=== PATIENT | female | born 1930 | race Caucasian/White ===

== ENCOUNTER 2016-10-04 20:22 | Emergency (ER) | payer MEDICARE | END 2016-10-04 21:05 | disposition home or self-care (01) | LOC: BURERS 20:22 | DX: I10 Essential (primary) hypertension (principal); I50.9 Heart failure, unspecified; E78.5 Hyperlipidemia, unspecified; E78.00 Pure hypercholesterolemia, unspecified; I11.0 Hypertensive heart disease with heart failure; F32.9 Major depressive disorder, single episode, unspecified; Z79.899 Other long term (current) drug therapy | CPT/HCPCS: 99283 ==

== ENCOUNTER 2016-11-25 09:43 | Outpatient (CLI) | payer MEDICARE | END 2016-11-25 09:44 | disposition home or self-care (01) | LOC: HPCALD 09:43 | PROVIDERS: ATTEND Family Medicine | DX: E89.0 Postprocedural hypothyroidism (principal) | CPT/HCPCS: 36415; 84443 ==

== ENCOUNTER 2017-04-23 08:50 | Outpatient (CLI) | payer MEDICARE, BC ==
[2017-04-23 10:10] LABS: ALT (SGPT) 18 U/L (8-55); AST (SGOT) 40 U/L (5-34); Albumin 3.9 g/dL (3.4-4.8); Alkaline Phosphatase 63 U/L (40-150); Anion Gap 16 mmol/L (10-20); BUN (Urea Nitrogen) 24 mg/dL (9.8-20.1); Bilirubin, Total 1.3 mg/dL (0.2-1.2); Calc. Creatinine Clearance 0 mL/min (70-130); Calcium 8.8 mg/dL (7.8-10.44); Carbon Dioxide 32 mmol/L (23-31); Cardiac Risk 2.2 (Less than 4.5); Chloride 100 mmol/L (98-107); Cholesterol 167 mg/dl (< 200 Desired); Estimated GFR-MDRD 46; Glucose 88 mg/dL (83-110); HDL Cholesterol 77 mg/dL (>60 Neg Risk); LDL Cholesterol, Calculated 80 mg/dL; Potassium 3.6 mmol/L (3.5-5.1); Protein, Total 6.9 g/dL (6.0-8.3); Sodium 144 mmol/L (136-145); Triglycerides 49 mg/dL (Less than 150)
== END 2017-04-23 08:51 | disposition home or self-care (01) ==
LOC: BURLAB 08:50
PROVIDERS: ATTEND Internal Medicine Cardiovascular Disease
DX: E03.9 Hypothyroidism, unspecified (principal); E78.00 Pure hypercholesterolemia, unspecified
CPT/HCPCS: 36415; 80053; 80061; 84443

== ENCOUNTER 2017-10-08 12:16 | Outpatient (CLI) | payer MEDICARE, BC ==
--- NOTE | 2017-10-08 20:18 | RAD ---
LEFT SHOULDER THREE VIEWS 10/08/17 There is a nondisplaced fracture of the distal clavicle just prior to the AC joint. The AC joint widt h is perhaps a little increased but there is no off set. The proximal humerus appears intact and the glenohumeral joint was unremarkable. There as no dislocation here. IMPRESSION: Undisplaced fracture of the distal end of the clavicle. POS: HOME
== END 2017-10-08 12:17 | disposition home or self-care (01) ==
LOC: BURRAD 12:16
PROVIDERS: ATTEND Family Medicine
DX: M25.512 Pain in left shoulder (principal); S42.035A Nondisplaced fracture of lateral end of left clavicle, initial encounter for closed fracture

== ENCOUNTER 2018-06-27 09:17 | Emergency (ER) | payer MEDICARE ==
[2018-06-27 10:11] LABS: ALT (SGPT) 37 U/L (8-55); AST (SGOT) 64 U/L (5-34); Albumin 3.6 g/dL (3.4-4.8); Alkaline Phosphatase 69 U/L (40-150); Anion Gap 11 mmol/L (10-20); BUN (Urea Nitrogen) 24 mg/dL (9.8-20.1); Bilirubin, Total 1.1 mg/dL (0.2-1.2); Calc. Creatinine Clearance 0 mL/min (70-130); Calcium 8.9 mg/dL (7.8-10.44); Carbon Dioxide 29 mmol/L (23-31); Chloride 105 mmol/L (98-107); Estimated GFR-MDRD 57; Globulin 2.8 g/dL (2.4-3.5); Glucose 92 mg/dL (83-110); Potassium 3.9 mmol/L (3.5-5.1); Protein, Total 6.4 g/dL (6.0-8.3); Sodium 141 mmol/L (136-145)
[2018-06-27 10:14] LABS: CKMB 1.1 ng/mL (0-6.6); Troponin I Less than 0.010 ng/mL (< 0.028)
[2018-06-27 10:24] LABS: #Eosinphils 0.3 thou/uL (0.0-0.7); #Lymphocytes 1.2 thou/uL (1.20-3.40); #Monocytes 0.5 thou/uL (0.11-0.59); #Neutrophils 2.3 thou/uL (1.40-6.50); %Eosinophils 7.8 % (0.0-10.0); %Lymphocytes 27.4 % (21.0-51.0); %Monocytes 10.9 % (0.0-10.0); Hemoglobin 11.7 g/dL (12.0-16.0); Mean Corpuscular Volume 99.9 fL (78.0-98.0); Mean Platelet Volume 10.3 fL (7.4-10.4); Platelet Count 92 thou/uL (130-400); RBC Distribution Width 13.3 % (11.5-14.5); Red Blood Cell (RBC) Count 3.43 mill/uL (4.20-5.40); White Blood Cell (WBC) Count 4.3 thou/uL (4.8-10.8)
[2018-06-27 10:26] LABS: MDiff Complete? YES
--- NOTE | 2018-06-27 11:06 | CT ---
CT OF JEANA PERFORMED WITHOUT CONTRAST ENHANCEMENT: HISTORY: Dizziness with fall hitting head. COMPARISON: A 08/19/2016 study. FINDINGS: There is marked generalized ventricular and sulcal prominence with decreased attenuation of the periv entricular white matter consistent with some chronic white matter change. No signs of intracerebral hemorrhage or extraaxial fluid collections. Mastoid air cells and visualized sinuses appear clear. IMPRESSION: No acute intracranial abnormalities. POS: [facility]
--- NOTE | 2018-06-27 11:27 | RAD ---
RIGHT WRIST 3 VIEWS: HISTORY: Fall, injury, right wrist pain. FINDINGS/IMPRESSION: No acute fracture or dislocation is seen. If symptoms do not improve, a followup exam should be obtained in 7-10 days. POS: [facility]
[2018-06-27] MEDS ORDERED: Furosemide 40 MG TAB ONE (11:28)
[2018-06-27] MEDS ORDERED: Lisinopril 20 MG TAB ONE (11:28)
--- NOTE | 2018-06-27 11:49 | RAD ---
LEFT HAND 3 VIEWS: HISTORY: Hand injury. FINDINGS: Vascular calcifications are noted. There are marked arthritic changes of the hand. Changes are part icularly pronounced at the PIP and DIP joints of the index finger and interphalangeal joint of the th umb. There is also severe arthritic change of the 1st carpometacarpal joint space. There is calcifi cation of the triangular fiber cartilage. There are arthritic changes of the triscaphe joint. I do not see any signs of a fracture. IMPRESSION: Severe arthritic changes and fairly extensive vascular calcifications. No acute injury. POS: [facility]
--- NOTE | 2018-06-27 11:49 | RAD ---
LEFT HUMERUS 2 VIEWS: HISTORY: Humerus pain status post fall. FINDINGS: Some arthritic changes of the AC joint. I do not see any signs of fracture or dislocation. No elbow joint effusion. IMPRESSION: No evidence of fracture. POS: [facility]
== END 2018-06-27 12:44 | disposition short-term general hospital (02) ==
LOC: BURERS 09:17
DX: R55 Syncope and collapse (principal); Z86.73 Personal history of transient ischemic attack (TIA), and cerebral infarction without residual deficits; I11.0 Hypertensive heart disease with heart failure; I50.9 Heart failure, unspecified; E03.9 Hypothyroidism, unspecified; E78.5 Hyperlipidemia, unspecified; I48.91 Unspecified atrial fibrillation; F32.9 Major depressive disorder, single episode, unspecified; G30.9 Alzheimer's disease, unspecified; F02.80 Dementia in other diseases classified elsewhere, unspecified severity, without behavioral disturbance, psychotic disturbance, mood disturbance, and anxiety
CPT/HCPCS: 70450; 80053; 82553; 83880; 84484; 85025; 93005

== ENCOUNTER 2018-11-08 09:21 | Emergency (ER) | payer MEDICARE, BC ==
--- NOTE | 2018-11-08 10:43 | CT ---
CT HEAD WITHOUT CONTRAST: INDICATIONS: Fall with injury to head. No loss of consciousness. COMPARISON: Recent head CT from 08/27/2018. TECHNIQUE: Multiple axial tomograms obtained through the head without IV enhancement. FINDINGS: Moderately severe chronic ischemic white matter change again noted. There is mild to moderate cortic al volume loss, which appears unchanged in appearance. No evidence of intracranial mass or hemorrhag e. No evidence of acute infarct. The paranasal sinuses and mastoids are clear. IMPRESSION: No evidence of acute process. POS: [facility]
--- NOTE | 2018-11-08 10:52 | CT ---
CT LUMBAR SPINE: Date: 11/08/18 Multiple axial tomograms obtained through lumbar spine with multiplanar reconstruction. INDICATION: Fall with injury and pain to lower back. FINDINGS: Lumbar vertebra maintain height. There are degenerative changes. Degenerative disc changes at all lev els, most prominent at L3-4, L4-5, and L5-S1. There is a Grade I spondylolisthesis at L4-5. No eviden ce of posterior spondylolysis. There is no evidence of fracture or acute compression deformity. At L1-2, no significant disc bulge or protrusion. No central canal or foraminal stenosis. At L2-3, diffuse disc bulge. Facet and ligamentous hypertrophy is prominent. Moderate central canal s tenosis. At L3-4, broad based disc bulge. Severe posterior facet and ligamentous hypertrophy. Severe central c anal stenosis at this level. Bilateral foraminal stenosis. At L4-5, anterolisthesis is noted above. Broad based disc bulge. Severe facet and ligamentous hypertr ophy. Severe central canal stenosis. Bilateral foraminal stenosis. At L5-S1, there is mild disc bulge and hypertrophic change. Facet hypertrophy. Mild central canal kevin nosis. Mild bilateral foraminal stenosis. IMPRESSION: 1. No evidence of vertebral body compression or acute fracture. 2. There are degenerative disc changes at all levels with Grade I spondylolisthesis at L4-5. Severe central canal stenosis is noted at L3-4 and L4-5 as described above. POS: [facility]
== END 2018-11-08 11:08 | disposition home or self-care (01) ==
LOC: BURERS 09:21
DX: S51.012A Laceration without foreign body of left elbow, initial encounter (principal); S09.90XA Unspecified injury of head, initial encounter; M43.16 Spondylolisthesis, lumbar region; M51.36 Other intervertebral disc degeneration, lumbar region; E30.9 Disorder of puberty, unspecified; E03.9 Hypothyroidism, unspecified; I48.91 Unspecified atrial fibrillation; J44.9 Chronic obstructive pulmonary disease, unspecified; E78.5 Hyperlipidemia, unspecified; I13.0 Hypertensive heart and chronic kidney disease with heart failure and stage 1 through stage 4 chronic kidney disease, or unspecified chronic kidney disease; N18.3 Chronic kidney disease, stage 3 (moderate); I50.9 Heart failure, unspecified; F32.9 Major depressive disorder, single episode, unspecified; Z79.899 Other long term (current) drug therapy; Z79.82 Long term (current) use of aspirin; W18.30XA Fall on same level, unspecified, initial encounter
CPT/HCPCS: 70450; 72131

== ENCOUNTER 2018-11-15 17:21 | Emergency (ER) | payer MEDICARE, BC ==
[2018-11-15 17:53] LABS: INR-International Normal Ratio 1.1; PTT 32.3 SEC (22.9-36.1); Prothrombin Time 13.8 SEC (12.0-14.7)
[2018-11-15 18:00] LABS: Bilirubin Negative (Negative); Blood, Urine Negative (Negative); Clarity SLIGHTLY (Clear); Glucose, Urine (Dipstick) Negative (Negative); Leukocyte Negative (Negative); Nitrite Negative (Negative); Protein, Urine (Dipstick) Trace mg/dL (Neg-Trace); Specific Gravity, Urine 1.015 (1.005-1.030); Urobilinogen 0.2 mg/dL (0.2-1.0)
[2018-11-15 18:01] LABS: ALT (SGPT) 81 U/L (8-55); AST (SGOT) 134 U/L (5-34); Albumin 3.8 g/dL (3.4-4.8); Alkaline Phosphatase 90 U/L (40-150); Anion Gap 17 mmol/L (10-20); BUN (Urea Nitrogen) 30 mg/dL (9.8-20.1); Bilirubin, Total 2.4 mg/dL (0.2-1.2); Calc. Creatinine Clearance 0 mL/min (70-130); Calcium 9.7 mg/dL (7.8-10.44); Carbon Dioxide 30 mmol/L (23-31); Chloride 99 mmol/L (98-107); Estimated GFR-MDRD 42; Globulin 4.2 g/dL (2.4-3.5); Glucose 100 mg/dL (83-110); Lipase 41 U/L (8-78); Potassium 4.1 mmol/L (3.5-5.1); Sodium 142 mmol/L (136-145)
[2018-11-15 18:08] LABS: #Basophils 0.1 thou/uL (0.0-0.2); #Eosinphils 0.4 thou/uL (0.0-0.7); #Lymphocytes 1.2 thou/uL (1.20-3.40); #Monocytes 0.6 thou/uL (0.11-0.59); #Neutrophils 5.9 thou/uL (1.40-6.50); %Basophils 0.9 % (0.0-1.0); %Eosinophils 4.8 % (0.0-10.0); %Lymphocytes 14.9 % (21.0-51.0); %Monocytes 7.6 % (0.0-10.0); %Neutrophils 71.8 % (42.0-75.0); Hemoglobin 14.2 g/dL (12.0-16.0); MDiff Complete? YES; Macrocytosis SLIGHT = 6-15 cells (100X) (0-5/hpf); Mean Corpuscular HGB CONC 33.2 g/dL (32.0-36.0); Mean Corpuscular Hemoglobin 34.3 pg (27.0-31.0); Mean Platelet Volume 9.7 fL (7.4-10.4); Platelet Count 143 thou/uL (130-400); RBC Distribution Width 13.3 % (11.5-14.5); Red Blood Cell (RBC) Count 4.13 mill/uL (4.20-5.40); White Blood Cell (WBC) Count 8.2 thou/uL (4.8-10.8)
[2018-11-15 18:21] LABS: CKMB 6.2 ng/mL (0-6.6)
--- NOTE | 2018-11-15 21:02 | RAD ---
PORTABLE CHEST: Date: 11-15-18 An AP portable film at 1800 is compared with a 09-09-[address] [facility]. FINDINGS: Mild cardiomegaly is about the same as before. There is no vascular congestion, edema, or pleural eff usion. The lungs are clear. The trachea is midline. A cardiac pacer is in place as before. No gross f ractures were identified. IMPRESSION: Mild cardiomegaly but no acute findings. POS: HOME
--- NOTE | 2018-11-15 21:06 | RAD ---
PELVIS ONE VIEW: Date: 11-15-18 FINDINGS: The bony pelvis appears intact with no obvious fracture seen. The symphysis shows no widening or offs et and the pubic rings appear intact. The hips appear intact. There is some mild joint space narrowin g bilaterally as well as mild arthritic change. The SI joints are not well assessed due to overlying gas and fecal material. Subtle injuries could be missed in the pelvis due to the overlying gas. CT wo uld be more sensitive if further detail was needed. Arterial calcifications are seen in the femoral v essels. IMPRESSION: No acute traumatic finding. POS: HOME
== END 2018-11-15 21:00 | disposition home or self-care (01) ==
LOC: BURERS 17:21
DX: R53.81 Other malaise (principal); I48.91 Unspecified atrial fibrillation; I13.0 Hypertensive heart and chronic kidney disease with heart failure and stage 1 through stage 4 chronic kidney disease, or unspecified chronic kidney disease; I50.9 Heart failure, unspecified; N18.3 Chronic kidney disease, stage 3 (moderate); I25.10 Atherosclerotic heart disease of native coronary artery without angina pectoris; F03.90 Unspecified dementia, unspecified severity, without behavioral disturbance, psychotic disturbance, mood disturbance, and anxiety; J44.9 Chronic obstructive pulmonary disease, unspecified; M19.90 Unspecified osteoarthritis, unspecified site; E78.5 Hyperlipidemia, unspecified; K59.00 Constipation, unspecified; Z86.73 Personal history of transient ischemic attack (TIA), and cerebral infarction without residual deficits; Z79.899 Other long term (current) drug therapy; Z79.51 Long term (current) use of inhaled steroids
CPT/HCPCS: 51701; 71045; 72170; 80053; 81003; 82553; 83605; 83690; 83880; 84484; 85025; 85610; 85730; 87804; 93005; 96360

== ENCOUNTER 2019-07-26 16:55 | Outpatient (CLI) | payer MEDICARE, BC ==
--- NOTE | 2019-07-26 19:50 | RAD ---
CHEST TWO VIEWS: 07/26/19 Comparison is made with the 06/19/19 study. COPD is present with flattening of the diaphragm. The heart is enlarged but no more so than before. T here are no congestive changes today. No pleural effusions are seen. There are no signs of pneumonia. The unipolar cardiac pacer remains in place. IMPRESSION: Cardiomegaly and COPD but no acute findings. POS: HOME
== END 2019-07-26 16:56 | disposition home or self-care (01) ==
LOC: BURRAD 16:55
PROVIDERS: ATTEND Nurse Practitioner Family
DX: J44.9 Chronic obstructive pulmonary disease, unspecified (principal); R05 Cough; I51.7 Cardiomegaly
CPT/HCPCS: 71046

== ENCOUNTER 2019-08-06 08:33 | Emergency (ER) | payer MEDICARE, BC ==
[2019-08-06 09:21] LABS: #Basophils 0.1 thou/uL (0.0-0.2); #Eosinphils 0.1 thou/uL (0.0-0.7); #Neutrophils 9.5 thou/uL (1.40-6.50); %Basophils 0.6 % (0.0-1.0); %Eosinophils 0.5 % (0.0-10.0); %Lymphocytes 8.4 % (21.0-51.0); %Monocytes 8.3 % (0.0-10.0); %Neutrophils 82.1 % (42.0-75.0); Hemoglobin 14.4 g/dL (12.0-16.0); Mean Corpuscular HGB CONC 32.2 g/dL (32.0-36.0); Mean Corpuscular Hemoglobin 33.4 pg (27.0-31.0); Platelet Count 123 thou/uL (130-400); RBC Distribution Width 12.7 % (11.5-14.5); Red Blood Cell (RBC) Count 4.32 mill/uL (4.20-5.40); White Blood Cell (WBC) Count 11.5 thou/uL (4.8-10.8)
[2019-08-06 09:32] LABS: ALT (SGPT) 16 U/L (8-55); AST (SGOT) 26 U/L (5-34); Albumin 3.5 g/dL (3.4-4.8); Alkaline Phosphatase 66 U/L (40-110); Anion Gap 15 mmol/L (10-20); BUN (Urea Nitrogen) 15 mg/dL (9.8-20.1); Bilirubin, Total 1.9 mg/dL (0.2-1.2); Calc. Creatinine Clearance 0 mL/min (70-130); Carbon Dioxide 31 mmol/L (23-31); Chloride 97 mmol/L (98-107); Estimated GFR-MDRD 54; Globulin 3.3 g/dL (2.4-3.5); Glucose 101 mg/dL (83-110); Protein, Total 6.8 g/dL (6.0-8.3); Sodium 139 mmol/L (136-145)
[2019-08-06] MEDS ORDERED: Ibuprofen 200 MG TAB ONE (09:38)
--- NOTE | 2019-08-06 10:15 | RAD ---
CHEST 2 VIEWS: DATE: 08/06/2019. COMPARISON: Comparison is made with a 07/26/2019 study. In the interval, there has been the appearance of an infiltrate in the right costophrenic angle and p robably a tiny amount of pleural fluid as well. Pneumonia seems probable. The lungs are otherwise c lear. There is no vascular congestion or edema. Mild cardiomegaly is unchanged. IMPRESSION: Interval appearance of an infiltrate in the right costophrenic angle, presumably a developing pneumon ia. CODE T POS: HOME
== END 2019-08-06 10:45 | disposition home or self-care (01) ==
LOC: BURERS 08:33
DX: J69.0 Pneumonitis due to inhalation of food and vomit (principal); E03.9 Hypothyroidism, unspecified; I25.10 Atherosclerotic heart disease of native coronary artery without angina pectoris; F03.90 Unspecified dementia, unspecified severity, without behavioral disturbance, psychotic disturbance, mood disturbance, and anxiety; I48.91 Unspecified atrial fibrillation; M19.90 Unspecified osteoarthritis, unspecified site; J44.9 Chronic obstructive pulmonary disease, unspecified; E78.5 Hyperlipidemia, unspecified; I13.0 Hypertensive heart and chronic kidney disease with heart failure and stage 1 through stage 4 chronic kidney disease, or unspecified chronic kidney disease; N18.3 Chronic kidney disease, stage 3 (moderate); I50.9 Heart failure, unspecified
CPT/HCPCS: 71046; 80053; 83605; 83880; 84484; 85025; 87040; 93005

== ENCOUNTER 2019-10-09 20:28 | Emergency (ER) | payer MEDICARE, BC ==
[2019-10-09 20:59] LABS: #Basophils 0.1 thou/uL (0.0-0.2); #Eosinphils 0.5 thou/uL (0.0-0.7); #Lymphocytes 1.5 thou/uL (1.20-3.40); #Monocytes 1.1 thou/uL (0.11-0.59); %Basophils 0.7 % (0.0-1.0); %Eosinophils 5.5 % (0.0-10.0); %Lymphocytes 15.9 % (21.0-51.0); %Monocytes 11.9 % (0.0-10.0); %Neutrophils 65.9 % (42.0-75.0); Hemoglobin 13.2 g/dL (12.0-16.0); Mean Corpuscular HGB CONC 33.2 g/dL (32.0-36.0); Mean Corpuscular Hemoglobin 32.6 pg (27.0-31.0); Mean Corpuscular Volume 98.3 fL (78.0-98.0); Mean Platelet Volume 8.9 fL (7.4-10.4); Platelet Count 129 thou/uL (130-400); RBC Distribution Width 12.1 % (11.5-14.5); Red Blood Cell (RBC) Count 4.05 mill/uL (4.20-5.40); White Blood Cell (WBC) Count 9.1 thou/uL (4.8-10.8)
[2019-10-09 21:12] LABS: ALT (SGPT) 69 U/L (8-55); AST (SGOT) 147 U/L (5-34); Albumin 3.4 g/dL (3.4-4.8); Alkaline Phosphatase 94 U/L (40-110); Anion Gap 20 mmol/L (10-20); BUN (Urea Nitrogen) 63 mg/dL (9.8-20.1); Bilirubin, Total 0.7 mg/dL (0.2-1.2); CK (CPK) 97 U/L (29-168); Calc. Creatinine Clearance 0 mL/min (70-130); Calcium 8.9 mg/dL (7.8-10.44); Carbon Dioxide 22 mmol/L (23-31); Chloride 99 mmol/L (98-107); Estimated GFR-MDRD 8; Globulin 4.6 g/dL (2.4-3.5); Glucose 113 mg/dL (83-110); Magnesium 2.2 mg/dL (1.6-2.6); Potassium 3.4 mmol/L (3.5-5.1); Sodium 138 mmol/L (136-145)
[2019-10-09 21:20] LABS: Bilirubin Negative (Negative); Blood, Urine Large (Negative); Clarity Cloudy (Clear); Glucose, Urine (Dipstick) Negative (Negative); Leukocyte Large (Negative); Nitrite Negative (Negative); Protein, Urine (Dipstick) 100 mg/dL (Neg-Trace); Urobilinogen 0.2 mg/dL (Less than 2)
[2019-10-09 21:28] LABS: Squamous Epithelial 0-3 HPF (0-3); Transitional Epithelial 0-3 HPF (None Seen); WBC/HPF 21-50 HPF (0-3)
[2019-10-09] MEDS ORDERED: cefTRIAXone\\ROCEPHIN 2 GM VIAL ONE (21:28)
[2019-10-09] MEDS ORDERED: Sodium Chloride 0.9% 100 ML ONE (21:28)
[2019-10-09 21:29] LABS: CKMB 1.3 ng/mL (0-6.6)
[2019-10-09 21:30] LABS: Bacteria/HPF 3+ HPF (None Seen); Renal Epithelial 0-3 HPF (None Seen)
--- NOTE | 2019-10-09 22:44 | CT ---
CT OF THE ABDOMEN AND PELVIS WITHOUT CONTRAST: Date: 10-09-2019 FINDINGS: A noncontrast CT was done. There is a small right pleural effusion. No major infiltrate was seen in t he lung bases. The heart is large. There appears to be an area of scarring near the right costophrenic angle. The liver, spleen, pancreas, kidneys, and abdominal aorta showed no acute findings of a noncontrast s tudy. The left adrenal gland is a little thicker than right, but as there is some motion artifact pre sent this is difficult to evaluate well. The aorta shows calcification but no dilation. There is considerable fecal material in the bowel all the way to the rectum. The lower rectal wall ma y be slightly thickened, but there is no inflammatory change around it. The small bowel is noted dila bob. No free or free fluid was seen. CT of the pelvis shows no pelvic masses, fluid collections, or inflammatory changes. Diffuse degenera tive changes are present throughout the lumbar spine with multilevel degenerative disc disease. Some areas of sclerosis in the sacrum are suggestive of prior insufficiency fractures which have been seen and commented on in prior CT scans. IMPRESSION: 1. Aside from mild constipation, no dramatic abdominal or pelvic findings. 2. Small right pleural effusion. 3. Other findings as noted above. POS: HOME
== END 2019-10-10 | disposition short-term general hospital (02) ==
LOC: BURERS 20:28
DX: N17.9 Acute kidney failure, unspecified (principal); N30.00 Acute cystitis without hematuria; R62.7 Adult failure to thrive; E03.9 Hypothyroidism, unspecified; I25.10 Atherosclerotic heart disease of native coronary artery without angina pectoris; I13.0 Hypertensive heart and chronic kidney disease with heart failure and stage 1 through stage 4 chronic kidney disease, or unspecified chronic kidney disease; N18.3 Chronic kidney disease, stage 3 (moderate); I50.9 Heart failure, unspecified; F03.90 Unspecified dementia, unspecified severity, without behavioral disturbance, psychotic disturbance, mood disturbance, and anxiety; I48.91 Unspecified atrial fibrillation; M19.90 Unspecified osteoarthritis, unspecified site; J44.9 Chronic obstructive pulmonary disease, unspecified; E78.5 Hyperlipidemia, unspecified; Z79.82 Long term (current) use of aspirin; Z79.899 Other long term (current) drug therapy
CPT/HCPCS: 74176; 80053; 81003; 81015; 82550; 82553; 83735; 84484; 85025; 87077; 87086; 87186; 93005; 96361; 96365; J0696; J3490

== ENCOUNTER 2019-10-19 20:30 | Inpatient (IN) | payer MEDICARE, BC ==
[2019-10-20] MEDS ORDERED: Bisacodyl 10 MG SUPP PR PRN (06:07)
[2019-10-20] MEDS ORDERED: Guaifenesin DM 100-10/5 ML UDCUP PO PRN (06:07)
[2019-10-20] MEDS ORDERED: Docusate 100 MG CAP PO PRN (06:07)
[2019-10-20] MEDS ORDERED: Calcium Carbonate 500 MG ChewTAB PO PRN (06:07)
[2019-10-20] MEDS ORDERED: cloNIDine 0.1 MG TAB PO PRN (06:07)
[2019-10-20] MEDS ORDERED: Senokot S 8.6-50 MG TAB PO PRN (06:07)
[2019-10-20] MEDS: Enoxaparin Sodium 30 MG/0.3 ML SYRINGE SC SCH (08:54)
[2019-10-20] MEDS: Ubidecarenone 50 MG CAP PO SCH (08:54)
[2019-10-20] MEDS: Aspirin 325 MG TAB PO SCH (08:55)
[2019-10-20] MEDS: Fish Oil 1,000 MG CAP PO SCH (08:55)
[2019-10-20] MEDS: Multivitamin W/ Minerals 1 TAB PO SCH (08:56)
[2019-10-20] MEDS: Megestrol Acetate 40 MG TAB PO SCH ×3 (08:57→20:34)
[2019-10-20] MEDS: Amlodipine 5 MG TAB PO SCH (08:57)
[2019-10-20] MEDS: hydrALAZINE 25 MG TAB PO SCH ×3 (08:57→20:35)
[2019-10-20] MEDS ORDERED: Prevnar 13-Val Conj/PF 0.5 ML SYRINGE IM ONE (09:00)
[2019-10-20] MEDS ORDERED: FLU VACC QS2019-20(6MOS UP)/PF 60 MCG/0.5 ML SYRINGE IM ONE (09:00)
[2019-10-20] MEDS ORDERED: Nystatin Powder 15 GM BOT TOP PRN (17:14)
[2019-10-20] MEDS: Ezetimibe 10 MG TAB PO SCH (20:34)
[2019-10-20] MEDS: Acetaminophen 325 MG TAB PO PRN (20:34)
[2019-10-20] MEDS: Donepezil HCl 10 MG TAB PO SCH (20:34)
[2019-10-21] MEDS: Levothyroxine Sodium 88 MCG TAB PO SCH (05:13)
[2019-10-21 05:40] LABS: #Basophils 0.1 thou/uL (0.0-0.2); #Eosinphils 0.5 thou/uL (0.0-0.7); #Monocytes 0.7 thou/uL (0.11-0.59); #Neutrophils 3.6 thou/uL (1.40-6.50); %Basophils 0.8 % (0.0-1.0); %Eosinophils 7.4 % (0.0-10.0); %Lymphocytes 29.2 % (21.0-51.0); %Neutrophils 52.6 % (42.0-75.0); Hemoglobin 11.3 g/dL (12.0-16.0); Mean Corpuscular HGB CONC 33.3 g/dL (32.0-36.0); Mean Corpuscular Hemoglobin 32.7 pg (27.0-31.0); Mean Corpuscular Volume 98.4 fL (78.0-98.0); Mean Platelet Volume 8.2 fL (7.4-10.4); Platelet Count 180 thou/uL (130-400); RBC Distribution Width 13.8 % (11.5-14.5); Red Blood Cell (RBC) Count 3.46 mill/uL (4.20-5.40); White Blood Cell (WBC) Count 6.9 thou/uL (4.8-10.8)
[2019-10-21 05:50] LABS: ALT (SGPT) 24 U/L (8-55); AST (SGOT) 37 U/L (5-34); Albumin 2.9 g/dL (3.4-4.8); Alkaline Phosphatase 68 U/L (40-110); Anion Gap 14 mmol/L (10-20); BUN (Urea Nitrogen) 37 mg/dL (9.8-20.1); Bilirubin, Total 0.4 mg/dL (0.2-1.2); Calc. Creatinine Clearance 16 mL/min (70-130); Carbon Dioxide 20 mmol/L (23-31); Chloride 110 mmol/L (98-107); Estimated GFR-MDRD 19; Globulin 3.5 g/dL (2.4-3.5); Glucose 86 mg/dL (83-110); Potassium 3.6 mmol/L (3.5-5.1); Protein, Total 6.4 g/dL (6.0-8.3); Sodium 140 mmol/L (136-145)
[2019-10-21] MEDS: Enoxaparin Sodium 30 MG/0.3 ML SYRINGE SC SCH (08:47)
[2019-10-21] MEDS: Amlodipine 5 MG TAB PO SCH (08:47)
[2019-10-21] MEDS: Fish Oil 1,000 MG CAP PO SCH (08:49)
[2019-10-21] MEDS: Megestrol Acetate 40 MG TAB PO SCH ×3 (08:49→21:08)
[2019-10-21] MEDS: Multivitamin W/ Minerals 1 TAB PO SCH (08:49)
[2019-10-21] MEDS: Ubidecarenone 50 MG CAP PO SCH (08:49)
[2019-10-21] MEDS: Furosemide 20 MG TAB PO SCH (08:50)
[2019-10-21] MEDS: Aspirin 325 MG TAB PO SCH (08:50)
[2019-10-21] MEDS: hydrALAZINE 25 MG TAB PO SCH ×3 (08:51→21:07)
[2019-10-21] MEDS: Acetaminophen 325 MG TAB PO PRN (21:06)
[2019-10-21] MEDS: Donepezil HCl 10 MG TAB PO SCH (21:08)
[2019-10-21] MEDS: Ezetimibe 10 MG TAB PO SCH (21:08)
[2019-10-22] MEDS: Levothyroxine Sodium 88 MCG TAB PO SCH (05:09)
[2019-10-22] MEDS: Enoxaparin Sodium 30 MG/0.3 ML SYRINGE SC SCH (09:29)
[2019-10-22] MEDS: Ubidecarenone 50 MG CAP PO SCH (09:30)
[2019-10-22] MEDS: Multivitamin W/ Minerals 1 TAB PO SCH (09:30)
[2019-10-22] MEDS: Aspirin 325 MG TAB PO SCH (09:30)
[2019-10-22] MEDS: Fish Oil 1,000 MG CAP PO SCH (09:30)
[2019-10-22] MEDS: Furosemide 20 MG TAB PO SCH (09:31)
[2019-10-22] MEDS: Megestrol Acetate 40 MG TAB PO SCH ×3 (09:31→20:56)
[2019-10-22] MEDS: Amlodipine 5 MG TAB PO SCH (09:34)
[2019-10-22] MEDS: hydrALAZINE 25 MG TAB PO SCH ×3 (09:43→20:56)
[2019-10-22] MEDS: Donepezil HCl 10 MG TAB PO SCH (20:55)
[2019-10-22] MEDS: Ezetimibe 10 MG TAB PO SCH (20:56)
[2019-10-23] MEDS: Levothyroxine Sodium 88 MCG TAB PO SCH (05:27)
[2019-10-23] MEDS: Multivitamin W/ Minerals 1 TAB PO SCH (10:00)
[2019-10-23] MEDS: Fish Oil 1,000 MG CAP PO SCH (10:00)
[2019-10-23] MEDS: Aspirin 325 MG TAB PO SCH (10:00)
[2019-10-23] MEDS: Ubidecarenone 50 MG CAP PO SCH (10:00)
[2019-10-23] MEDS: Furosemide 20 MG TAB PO SCH (10:01)
[2019-10-23] MEDS: Megestrol Acetate 40 MG TAB PO SCH ×3 (10:01→21:34)
[2019-10-23] MEDS: Enoxaparin Sodium 30 MG/0.3 ML SYRINGE SC SCH (10:02)
[2019-10-23] MEDS: Amlodipine 5 MG TAB PO SCH (10:03)
[2019-10-23] MEDS: hydrALAZINE 25 MG TAB PO SCH ×3 (10:04→21:34)
[2019-10-23] MEDS: Donepezil HCl 10 MG TAB PO SCH (21:34)
[2019-10-23] MEDS: Ezetimibe 10 MG TAB PO SCH (21:34)
[2019-10-24 05:21] LABS: #Basophils 0.1 thou/uL (0.0-0.2); #Eosinphils 0.5 thou/uL (0.0-0.7); #Lymphocytes 2.3 thou/uL (1.20-3.40); #Monocytes 0.8 thou/uL (0.11-0.59); #Neutrophils 3.1 thou/uL (1.40-6.50); %Basophils 1.1 % (0.0-1.0); %Eosinophils 7.8 % (0.0-10.0); %Lymphocytes 33.9 % (21.0-51.0); %Monocytes 11.5 % (0.0-10.0); %Neutrophils 45.7 % (42.0-75.0); Hemoglobin 10.3 g/dL (12.0-16.0); Mean Corpuscular HGB CONC 32.4 g/dL (32.0-36.0); Mean Corpuscular Volume 99.1 fL (78.0-98.0); Mean Platelet Volume 7.6 fL (7.4-10.4); Platelet Count 184 thou/uL (130-400); RBC Distribution Width 13.7 % (11.5-14.5); Red Blood Cell (RBC) Count 3.21 mill/uL (4.20-5.40); White Blood Cell (WBC) Count 6.7 thou/uL (4.8-10.8)
[2019-10-24] MEDS: Levothyroxine Sodium 88 MCG TAB PO SCH (05:23)
[2019-10-24 05:29] LABS: Anion Gap 12 mmol/L (10-20); BUN (Urea Nitrogen) 30 mg/dL (9.8-20.1); Calc. Creatinine Clearance 19 mL/min (70-130); Calcium 7.6 mg/dL (7.8-10.44); Carbon Dioxide 23 mmol/L (23-31); Chloride 109 mmol/L (98-107); Estimated GFR-MDRD 23; Glucose 84 mg/dL (83-110); Sodium 141 mmol/L (136-145)
[2019-10-24 06:26] VITALS: BMI 21.0
[2019-10-24] MEDS ORDERED: Potassium Chloride 20 MEQ TAB PO SCH (07:15)
[2019-10-24] MEDS: Megestrol Acetate 40 MG TAB PO SCH ×3 (08:40→21:12)
[2019-10-24] MEDS: Fish Oil 1,000 MG CAP PO SCH (08:41)
[2019-10-24] MEDS: Amlodipine 5 MG TAB PO SCH (08:41)
[2019-10-24] MEDS: Aspirin 325 MG TAB PO SCH (08:41)
[2019-10-24] MEDS: Ubidecarenone 50 MG CAP PO SCH (08:41)
[2019-10-24] MEDS: hydrALAZINE 25 MG TAB PO SCH ×3 (08:44→21:13)
[2019-10-24] MEDS: Furosemide 20 MG TAB PO SCH (08:46)
[2019-10-24] MEDS: Multivitamin W/ Minerals 1 TAB PO SCH (08:46)
[2019-10-24] MEDS: Enoxaparin Sodium 30 MG/0.3 ML SYRINGE SC SCH (08:46)
[2019-10-24] MEDS: Donepezil HCl 10 MG TAB PO SCH (21:12)
[2019-10-24] MEDS: Ezetimibe 10 MG TAB PO SCH (21:12)
[2019-10-24] MEDS: Rosuvastatin 10 MG TAB PO SCH (21:14)
[2019-10-25] MEDS: Levothyroxine Sodium 88 MCG TAB PO SCH (05:15)
[2019-10-25 05:41] LABS: Anion Gap 13 mmol/L (10-20); BUN (Urea Nitrogen) 33 mg/dL (9.8-20.1); Calc. Creatinine Clearance 18 mL/min (70-130); Calcium 7.7 mg/dL (7.8-10.44); Carbon Dioxide 25 mmol/L (23-31); Chloride 107 mmol/L (98-107); Estimated GFR-MDRD 22; Glucose 84 mg/dL (83-110); Potassium 3.5 mmol/L (3.5-5.1); Sodium 141 mmol/L (136-145)
[2019-10-25] MEDS: Enoxaparin Sodium 30 MG/0.3 ML SYRINGE SC SCH (08:29)
[2019-10-25] MEDS: Multivitamin W/ Minerals 1 TAB PO SCH (08:29)
[2019-10-25] MEDS: Aspirin 325 MG TAB PO SCH (08:30)
[2019-10-25] MEDS: Ubidecarenone 50 MG CAP PO SCH (08:30)
[2019-10-25] MEDS: Fish Oil 1,000 MG CAP PO SCH (08:31)
[2019-10-25] MEDS: Potassium Chloride 20 MEQ TAB PO SCH (08:31)
[2019-10-25] MEDS: Furosemide 20 MG TAB PO SCH (08:31)
[2019-10-25] MEDS: hydrALAZINE 25 MG TAB PO SCH ×3 (08:35→20:15)
[2019-10-25] MEDS: Megestrol Acetate 40 MG TAB PO SCH ×3 (08:38→20:14)
[2019-10-25] MEDS: Rosuvastatin 10 MG TAB PO SCH (20:14)
[2019-10-25] MEDS: Ezetimibe 10 MG TAB PO SCH (20:14)
[2019-10-25] MEDS: Donepezil HCl 10 MG TAB PO SCH (20:14)
[2019-10-26] MEDS: Levothyroxine Sodium 88 MCG TAB PO SCH (05:41)
[2019-10-26 06:00] LABS: Hemoglobin 10.3 g/dL (12.0-16.0); Platelet Count 182 thou/uL (130-400)
[2019-10-26] MEDS: Furosemide 20 MG TAB PO SCH (08:39)
[2019-10-26] MEDS: Fish Oil 1,000 MG CAP PO SCH (08:39)
[2019-10-26] MEDS: Ubidecarenone 50 MG CAP PO SCH (08:39)
[2019-10-26] MEDS: Potassium Chloride 20 MEQ TAB PO SCH (08:41)
[2019-10-26] MEDS: Megestrol Acetate 40 MG TAB PO SCH ×3 (08:42→21:30)
[2019-10-26] MEDS: Multivitamin W/ Minerals 1 TAB PO SCH (08:42)
[2019-10-26] MEDS: Aspirin 325 MG TAB PO SCH (08:45)
[2019-10-26] MEDS: Enoxaparin Sodium 30 MG/0.3 ML SYRINGE SC SCH (08:45)
[2019-10-26] MEDS: hydrALAZINE 25 MG TAB PO SCH ×3 (09:35→21:29)
[2019-10-26] MEDS: Rosuvastatin 10 MG TAB PO SCH (21:29)
[2019-10-26] MEDS: Ezetimibe 10 MG TAB PO SCH (21:29)
[2019-10-26] MEDS: Donepezil HCl 10 MG TAB PO SCH (21:29)
[2019-10-27] MEDS: Acetaminophen 325 MG TAB PO PRN ×2 (05:50→11:45)
[2019-10-27] MEDS: Levothyroxine Sodium 88 MCG TAB PO SCH (05:50)
[2019-10-27] MEDS: Enoxaparin Sodium 30 MG/0.3 ML SYRINGE SC SCH (08:30)
[2019-10-27] MEDS: Fish Oil 1,000 MG CAP PO SCH (08:32)
[2019-10-27] MEDS: Aspirin 325 MG TAB PO SCH (08:32)
[2019-10-27] MEDS: Ubidecarenone 50 MG CAP PO SCH (08:32)
[2019-10-27] MEDS: Megestrol Acetate 40 MG TAB PO SCH ×3 (08:32→20:06)
[2019-10-27] MEDS: Potassium Chloride 20 MEQ TAB PO SCH (08:33)
[2019-10-27] MEDS: Multivitamin W/ Minerals 1 TAB PO SCH (08:33)
[2019-10-27] MEDS: Furosemide 20 MG TAB PO SCH (08:33)
[2019-10-27] MEDS: hydrALAZINE 25 MG TAB PO SCH ×3 (08:42→20:05)
[2019-10-27] MEDS: Rosuvastatin 10 MG TAB PO SCH (20:06)
[2019-10-27] MEDS: Ezetimibe 10 MG TAB PO SCH (20:06)
[2019-10-27] MEDS: Donepezil HCl 10 MG TAB PO SCH (20:06)
[2019-10-28 04:49] LABS: Hemoglobin 10.2 g/dL (12.0-16.0); Platelet Count 187 thou/uL (130-400)
[2019-10-28] MEDS: Levothyroxine Sodium 88 MCG TAB PO SCH (06:21)
[2019-10-28] MEDS: Enoxaparin Sodium 30 MG/0.3 ML SYRINGE SC SCH (08:42)
[2019-10-28] MEDS: Megestrol Acetate 40 MG TAB PO SCH ×3 (08:44→21:25)
[2019-10-28] MEDS: Aspirin 325 MG TAB PO SCH (08:44)
[2019-10-28] MEDS: Multivitamin W/ Minerals 1 TAB PO SCH (08:44)
[2019-10-28] MEDS: Furosemide 20 MG TAB PO SCH (08:44)
[2019-10-28] MEDS: Ubidecarenone 50 MG CAP PO SCH (08:44)
[2019-10-28] MEDS: Fish Oil 1,000 MG CAP PO SCH (08:45)
[2019-10-28] MEDS: Potassium Chloride 20 MEQ TAB PO SCH (08:45)
[2019-10-28] MEDS: hydrALAZINE 25 MG TAB PO SCH ×3 (08:48→21:25)
[2019-10-28] MEDS: Ezetimibe 10 MG TAB PO SCH (21:25)
[2019-10-28] MEDS: Donepezil HCl 10 MG TAB PO SCH (21:25)
[2019-10-28] MEDS: Rosuvastatin 10 MG TAB PO SCH (21:25)
[2019-10-29] MEDS: Levothyroxine Sodium 88 MCG TAB PO SCH (05:42)
[2019-10-29] MEDS: Aspirin 325 MG TAB PO SCH (09:02)
[2019-10-29] MEDS: Ubidecarenone 50 MG CAP PO SCH (09:02)
[2019-10-29] MEDS: hydrALAZINE 25 MG TAB PO SCH (09:03)
[2019-10-29] MEDS: Fish Oil 1,000 MG CAP PO SCH (09:03)
[2019-10-29] MEDS: Megestrol Acetate 40 MG TAB PO SCH (09:04)
[2019-10-29] MEDS: Multivitamin W/ Minerals 1 TAB PO SCH (09:05)
[2019-10-29] MEDS: Potassium Chloride 20 MEQ TAB PO SCH (09:05)
[2019-10-29] MEDS: Furosemide 20 MG TAB PO SCH (09:05)
[2019-10-29] MEDS: Enoxaparin Sodium 30 MG/0.3 ML SYRINGE SC SCH (09:05)
[2019-10-29 11:30] VITALS: BP 120/59; TEMP 98.1
--- NOTE | 2019-10-30 11:58 | DIS ---
DATE OF ADMISSION: 10/19/2019 DATE OF DISCHARGE: 10/29/2019 ADMISSION DIAGNOSES: Acute renal failure, physical deconditioning, severe aortic stenosis, protein-calorie malnutrition, hypertension, dyslipidemia, hypothyroidism, and dementia. PROCEDURES: None. HOSPITAL COURSE: An 89-year-old female transitioned to our facility to participate with physical therapy and occupational therapy, status post acute admission at [facility] in [place], where she was treated for acute kidney failure and urinary tract infection. She was treated with Rocephin and completed a 9-day course of IV antibiotics with subsequent urinary culture being pansensitive. She was evaluated by Nephrology during her stay there and was treated with gentle IV hydration. Her intake improved while there and her Megace was uptitrated. The patient does have underlying severe aortic stenosis and she was evaluated by Cardiology as well. However, she is deemed not a surgical candidate in regards to this diagnosis; her blood pressure medications were uptitrated during her stay in [place]. The patient did transition to our facility for shelter care and participation with physical therapy and occupational therapy at [facility]. The patient did display improvement in her functional status in working with therapy. Her renal function continued to improve throughout her stay. Her initial creatinine was 2.43 and this has decreased to 1.77, and her initial GFR was 19 and this has increased to 27. The patient's intake was stable throughout her stay. As far as her cardiac status, she did have edema to the left upper extremity, for which she was restarted on Lasix 20 mg daily, which she has taken in the past; she also required the addition of daily potassium chloride after restarting her Lasix. The patient did require holding of blood pressure medications at various times and thus several of her blood pressure medications were down regulated during her stay. Notably, amlodipine was discontinued and hydralazine was decreased from 75 mg t.i.d. to 50 mg t.i.d. The patient had no significant setbacks during her stay and has achieved the goals to be able to return home, which is the wish of her family with continuity of care to be continued with [facility]. DISPOSITION: The patient was discharged home to live with family members and have continuity of care with [facility]. She may follow up with myself in the clinic in 1 week. DISCHARGE MEDICATIONS: Include: 1. Tylenol 650 mg q.4 hours p.r.n. 2. DuoNeb 3 mL q.i.d. p.r.n. 3. Aspirin 325 mg daily. 4. Calcium carbonate 1000 mg q.4 hours p.r.n. 5. Cholecalciferol 1000 units daily. 6. Coenzyme Q10 of 200 mg daily. 7. Docusate sodium 100 mg daily p.r.n. 8. Donepezil 10 mg at bedtime. 9. Zetia 10 mg at bedtime. 10. Fish oil 1000 mg daily. 11. Lasix 20 mg daily. 12. Robitussin 15 mL q.4 hours p.r.n. 13. Hydralazine 50 mg t.i.d. 14. Theragran multivitamin one tablet daily. 15. Levothyroxine 88 mcg daily. 16. Megace 40 mg t.i.d. 17. Metoprolol succinate 150 mg daily. 18. Potassium chloride 20 mEq daily. 19. Seroquel 12.5 mg at bedtime. 20. Crestor 10 mg at bedtime. 21. Senokot-S two tablets b.i.d. p.r.n. Job ID: [id number] [facility]
--- NOTE | 2019-11-01 22:24 | PQF ---
[facility] TRINA LUCIA [id number] CLINICAL DOCUMENTATION CLARIFICATION FORM: POST DISCHARGE Addendum to original discharge summary date: 10/29/19 Late entry note date: 11/02/19 Date:11/01/2019 ATTN: TRINA LUCIA Please exercise your independent, professional judgment in responding to the clarification form. Clinical indicators are provided on the bottom of this form for your review Please check appropriate box(s): kindly clarify the diagnosis protein calorie malnutrition; [ x ] Mild protein Calorie Malnutrition [ ] Moderate protein Calorie Malnutrition [ ] Severe protein Calorie Malnutrition [ ] Other diagnosis [ ] Unable to determine CLINICAL INDICATORS - SIGNS / SYMPTOMS / LABS Protein calorie malnutrition-Documented in discharge summary on 10/28 by Trina Lucia MD ANABELLE-Documented in discharge summary on 10/28 by Trina Lucia MD BMI-21.0-Documented in FNS assessment Poor appetite-Documented in FNS assessment Documented PO intake, 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 on RISK FACTORS Dyslipidemia-Documented in discharge summary on 10/28 by Trina Lucia MD Hypothyroidism-Documented in discharge summary on 10/28 by Trina Lucia MD TREATMENT: Suplena shakes BID-Documented in FNS assessment Ensure Enlive TID-Documented in FNS assessment Documented intake of 49% of meals +1-2 suplena shakes daily -Documented in FNS assessment in 10/25 Continue heart healthy diet to encourage PO intake leave off renal restriction at this time -Documented in FNS assessment on 10/25 Continue Megace-Documented in FNS assessment on 10/25 Moderate Malnutrition (in acute illness) Energy Intake: <75% of estimated energy requirement for > 7 days Weight Loss: 1-2%/1 week; 5%/ 1 month; 7.5%/3 months Other: mild body fat loss; mild muscle mass loss; mild fluid accumulation; Severe Malnutrition (in acute illness) Energy Intake: < 50% of estimated energy requirement for > 5 days Weight Loss: >1-2%/1 week; >5%/1 month; >7.5%/3 months Other: moderate body fat loss; moderate muscle mass loss; moderate- severe fluid accumulation; measurably reduced banking services clerk strength Moderate Malnutrition (in chronic illness) Energy Intake: <75% of estimated energy requirement for >1 month Weight Loss: 5%/1 month; 7.5%/3 months; 10%/6 months; 20%/1 year Other: mild body fat loss; mild muscle mass loss; mild fluid accumulation Severe Malnutrition (in chronic illness) Energy Intake: <75% of estimated energy requirement for >1 month Weight Loss: >5%/1 month; >7.5%/3 months; >10%/6 months; >20%/1 year Other: severe body fat loss; severe muscle mass loss; severe fluid accumulation ; measurably reduced banking services clerk strength [employer] (This form is maintained as a part of the permanent medical record) 2014 [employer]. All Rights Reserved [phone] MTDD
== END 2019-10-29 11:25 | disposition home health service (06) | DRG 683 ==
LOC: BURMED 20:30
PROVIDERS: ADMIT Family Medicine; ATTEND Family Medicine
DX: N17.9 Acute kidney failure, unspecified (principal); E46 Unspecified protein-calorie malnutrition; I13.0 Hypertensive heart and chronic kidney disease with heart failure and stage 1 through stage 4 chronic kidney disease, or unspecified chronic kidney disease; I50.32 Chronic diastolic (congestive) heart failure; I69.351 Hemiplegia and hemiparesis following cerebral infarction affecting right dominant side; E44.1 Mild protein-calorie malnutrition; I35.0 Nonrheumatic aortic (valve) stenosis; E78.5 Hyperlipidemia, unspecified; E03.9 Hypothyroidism, unspecified; F03.90 Unspecified dementia, unspecified severity, without behavioral disturbance, psychotic disturbance, mood disturbance, and anxiety; Z68.21 Body mass index [BMI] 21.0-21.9, adult; E87.5 Hyperkalemia; R53.81 Other malaise; I25.10 Atherosclerotic heart disease of native coronary artery without angina pectoris; Z96.653 Presence of artificial knee joint, bilateral; N18.3 Chronic kidney disease, stage 3 (moderate); Z95.0 Presence of cardiac pacemaker; Z98.49 Cataract extraction status, unspecified eye; Z98.890 Other specified postprocedural states; R62.7 Adult failure to thrive; Z88.1 Allergy status to other antibiotic agents; Z66 Do not resuscitate
CPT/HCPCS: 36415; 80048; 80053; 82565; 85014; 85018; 85025; 85049; J1650; S0179

== ENCOUNTER 2020-05-27 09:31 | Emergency (ER) | payer MEDICARE, BC ==
[2020-05-27 10:05] LABS: #Basophils 0.1 thou/uL (0.0-0.2); #Eosinphils 0.3 thou/uL (0.0-0.7); #Lymphocytes 1.8 thou/uL (1.20-3.40); #Monocytes 0.6 thou/uL (0.11-0.59); %Basophils 1.4 % (0.0-1.0); %Eosinophils 3.5 % (0.0-10.0); %Lymphocytes 23.4 % (21.0-51.0); %Monocytes 7.7 % (0.0-10.0); Hemoglobin 12.5 g/dL (12.0-16.0); MDiff Complete? YES; Macrocytosis SLIGHT = 6-15 cells (100X) (0-5/hpf); Mean Corpuscular HGB CONC 30.7 g/dL (32.0-36.0); Mean Corpuscular Hemoglobin 32.6 pg (27.0-31.0); Mean Platelet Volume 8.4 fL (7.4-10.4); Platelet Count 225 thou/uL (130-400); RBC Distribution Width 13.9 % (11.5-14.5); Red Blood Cell (RBC) Count 3.82 mill/uL (4.20-5.40); White Blood Cell (WBC) Count 7.8 thou/uL (4.8-10.8)
[2020-05-27 10:09] LABS: INR-International Normal Ratio 1.1; Prothrombin Time 14.7 sec (12.0-14.7)
[2020-05-27 10:10] LABS: PTT 30.3 sec (22.9-36.1)
[2020-05-27 10:16] LABS: ALT (SGPT) 20 U/L (8-55); AST (SGOT) 35 U/L (5-34); Albumin 3.8 g/dL (3.4-4.8); Alkaline Phosphatase 56 U/L (40-110); Anion Gap 18 mmol/L (10-20); BUN (Urea Nitrogen) 21 mg/dL (9.8-20.1); Bilirubin, Total 1.6 mg/dL (0.2-1.2); Calc. Creatinine Clearance 0 mL/min (70-130); Carbon Dioxide 23 mmol/L (23-31); Chloride 103 mmol/L (98-107); Estimated GFR-MDRD 30; Globulin 3.3 g/dL (2.4-3.5); Glucose 92 mg/dL (83-110); Potassium 4.8 mmol/L (3.5-5.1); Protein, Total 7.1 g/dL (6.0-8.3); Sodium 139 mmol/L (136-145)
[2020-05-27 10:43] LABS: CKMB 1.8 ng/mL (0-6.6)
[2020-05-27 11:12] LABS: Bilirubin Negative (Negative); Blood, Urine Negative (Negative); Clarity Clear (Clear); Glucose, Urine (Dipstick) Negative (Negative); Ketone, Urine Negative (Negative); Leukocyte Trace (Negative); Nitrite Negative (Negative); Protein, Urine (Dipstick) Negative (Neg-Trace); Specific Gravity, Urine 1.015 (1.005-1.030); Urobilinogen 0.2 mg/dL (Less than 2); pH, Urine 5.5 (5.0-9.0)
[2020-05-27 11:15] LABS: Bacteria/HPF Rare-Few HPF (None Seen); RBC/HPF None Seen HPF (0-3); Squamous Epithelial 0-3 HPF (0-3); WBC/HPF 0-3 HPF (0-3)
--- NOTE | 2020-05-27 11:59 | CT ---
CT OF THE BRAIN WITHOUT CONTRAST: DATE: 05/27/2020. FINDINGS: A noncontrast CT was done for evaluation of expressive aphasia. 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 Today's exam shows increased hypodensity around the area of the prior left parietal stroke. This has occurred since the 05/01 study. Given the onset of aphasia, the location of this and increase in size of the low-density over a 1-month period, this is probably more than just encephalomalacia but likel y represents an acute stroke on top of the old one. There is no bleeding. Diffuse chronic ischemic changes are seen elsewhere. Atrophy and compensatory dilatation of the ventricles is the same as usu al. IMPRESSION: Probable acute on top of old stroke in the left posterior parietal region. Discussed with Dr. Gutierrez at 1024 on 05/27/2020. CODE CR POS: HOME
== END 2020-05-27 12:07 | disposition short-term general hospital (02) ==
LOC: BURERS 09:31
DX: I63.9 Cerebral infarction, unspecified (principal); F03.90 Unspecified dementia, unspecified severity, without behavioral disturbance, psychotic disturbance, mood disturbance, and anxiety; E03.9 Hypothyroidism, unspecified; I25.10 Atherosclerotic heart disease of native coronary artery without angina pectoris; I13.0 Hypertensive heart and chronic kidney disease with heart failure and stage 1 through stage 4 chronic kidney disease, or unspecified chronic kidney disease; N18.30 Chronic kidney disease, stage 3 unspecified; I50.9 Heart failure, unspecified; I48.91 Unspecified atrial fibrillation; M19.90 Unspecified osteoarthritis, unspecified site; J44.9 Chronic obstructive pulmonary disease, unspecified; E78.5 Hyperlipidemia, unspecified; Z79.899 Other long term (current) drug therapy; Z79.82 Long term (current) use of aspirin; Z79.02 Long term (current) use of antithrombotics/antiplatelets; R29.715 NIHSS score 15
CPT/HCPCS: 36415; 70450; 80053; 81003; 81015; 82553; 84484; 85025; 85610; 85730; 93005; 94760